=== PATIENT | female | born 1995 | race Asian ===

== ENCOUNTER 2016-07-30 17:21 | Emergency (ER) | payer MEDICAID ==
[2016-07-30 17:34] VITALS: BP 111/71; PULSE 73; RESP 16; TEMP 98.4; O2SAT 95
[2016-07-30 17:44] LABS: LEUKOCYTE ESTERASE,URINE TRACE (NEGATIVE)
[2016-07-30 17:45] LABS: COLOR DARK YELLOW; NITRITE,URINE POSITIVE (NEGATIVE)
[2016-07-30 17:53] LABS: BACTERIA 1+ /hpf (NONE SEEN); MUCUS 2+ /lpf (NONE-1+); RBC,URINE >182 /hpf (0-3)
[2016-07-30] MEDS ORDERED: CEPHALEXIN 500 MG CAP PO ONE (17:54)
--- NOTE | 2016-07-30 17:54 | EDPHY ---
H & P HPI/ROS: CHIEF COMPLAINT: Blood in urine HISTORY OF PRESENT ILLNESS: 21-year-old female presents with a history of urinary tract infection presents with hematuria. Onset of dysuria 2 days ago. Associated with gross hematuria, that started yesterday. Associated with low back achiness. Last menstrual period was 07/09/2016 and regular. No associated fever or vomiting. REVIEW OF SYSTEMS: Constitutional: No fever, no chills Eyes: No drainage ENT: No sore throat Respiratory: No cough, no shortness of breath Cardiac: No chest pain Gastrointestinal: No nausea, no vomiting, no abdominal pain Skin: No rash Neurological: No headache Past Medical/Surgical History: Urinary tract infections Smoking Status: Never smoked Physical Exam: General Appearance: Alert, pleasant, nontoxic-appearing Eyes: Pupils equal and round ENT, Mouth: Mucous membranes moist Neck: Normal inspection Gastrointestinal: Abdomen is soft and nontender Back: No CVAT Neurological: A&O, nonfocal, normal gait Skin: Warm and dry Extremities: normal inspection Psychiatric: Mood and affect normal Constitutional: Initial Vital Signs Temperature (C) 36.9 C 07/30/16 17:32 Heart Rate 73 07/30/16 17:32 Respiratory Rate 16 07/30/16 17:32 Blood Pressure 111/71 07/30/16 17:32 O2 Sat (%) 95 07/30/16 17:32 O2 Delivery Mode Room Air Allergies/Adverse Reactions: No Known Allergies Allergy (Unverified 07/30/16 17:44) Home Medications: Medication Instructions Recorded Azo 07/30/16 Cephalexin [Keflex (*)] 500 mg PO QID #20 cap 07/30/16 Prozac 10 MG (*) 07/30/16 Medical Decision Making ED Course/Re-evaluation: Urinalysis consistent with urinary tract infection. Keflex 500 mg orally given. A urine culture was sent. - Data Points Laboratory Results: 07/30/16 17:40 Urine Color DARK YELLOW Urine Appearance CLOUDY Urine pH 6.0 (5.0-7.5) Ur Specific [place] 1.025 (1.002-1.030) Urine Protein 2+ H (NEGATIVE) Urine Ketones TRACE H (NEGATIVE) Urine Blood 3+ H (NEGATIVE) Urine Nitrate POSITIVE H (NEGATIVE) Urine Bilirubin NEGATIVE (NEGATIVE) Urine Urobilinogen 1.0 EU EU (0.2-1.0) Ur Leukocyte Esterase TRACE H (NEGATIVE) Urine RBC >182 /hpf H /hpf (0-3) Urine WBC 5-10 /hpf H /hpf (0-3) Ur Epithelial Cells 1+ /lpf /lpf (NONE-1+) Urine Bacteria 1+ /hpf H /hpf (NONE SEEN) Urine Mucus 2+ /lpf H /lpf (NONE-1+) Urine Glucose NEGATIVE (NEGATIVE) Departure - Departure Disposition: Home, Routine, Self-Care Clinical Impression: Urinary tract infection Qualifiers: Urinary tract infection type: acute cystitis Hematuria presence: with hematuria Qualified Code(s): N30.01 - Acute cystitis with hematuria Condition: Good Instructions: Urinary Tract Infection in Women (ED) Referrals: Harmeet Vance MD [Medical Doctor] - 2-3 days, if not improved Prescriptions: Cephalexin [Keflex (*)] 500 mg PO QID #20 cap
== END 2016-07-30 18:00 | disposition home or self-care (01) ==
LOC: CED 17:21
DX: N30.01 Acute cystitis with hematuria (principal); B96.89 Other specified bacterial agents as the cause of diseases classified elsewhere
CPT/HCPCS: 81003-PO; 81015-PO